=== PATIENT | female | born 1990 | race Caucasian/White ===

== ENCOUNTER → 2017-05-13 | Outpatient (CLI) | payer OTHER | LOC: STAR 15:36 | PROVIDERS: ATTEND Obstetrics & Gynecology Female Pelvic Medicine and Reconstructive Surgery | DX: Z02.9 Encounter for administrative examinations, unspecified (principal) ==

== ENCOUNTER 2017-05-18 05:37 | Day surgery (SDC) | payer OTHER ==
[~2017-05-18] VITALS: Ht 170.2 cm; Wt 85.0 kg
[2017-05-18] MEDS ORDERED: LACTATED RINGERS 1,000 ML IV SCH (06:04)
[2017-05-18 06:24] LABS: HCG UR LOT HCG7030192
[2017-05-18 06:29] VITALS: BP 118/73
[2017-05-18 06:31] LABS: HCG UR OBC PASS
[2017-05-18] MEDS ORDERED: EPINEPHRINE 1 MG/ML, 1ML ONE (07:01)
[2017-05-18] MEDS ORDERED: BUPIVACAINE/PF 0.25% ONE (07:01)
[2017-05-18] MEDS ORDERED: MIDAZOLAM 1 MG/ML, 2ML ONE ×2 (07:07→07:33)
[2017-05-18] MEDS ORDERED: CEFAZOLIN 1,000 MG ONE ×2 (07:27→07:33)
[2017-05-18] MEDS ORDERED: PROPOFOL 50 ML ONE (07:27)
[2017-05-18] MEDS ORDERED: ONDANSETRON 2MG/ML, 2ML ONE ×2 (07:27→07:33)
[2017-05-18] MEDS ORDERED: DEXAMETHASONE 4 MG/ML, 1ML ONE ×2 (07:27→07:33)
[2017-05-18] MEDS ORDERED: GLYCOPYRROLATE 0.2MG/1ML, 5ML ONE (07:27)
[2017-05-18] MEDS ORDERED: SUCCINYLCHOLINE 20 MG/ML, 10ML ONE ×2 (07:27→07:33)
[2017-05-18] MEDS ORDERED: PROPOFOL 10 MG/ML, 20ML ONE ×2 (07:27→07:33)
[2017-05-18] MEDS ORDERED: NEOSTIGMINE 1 MG/ML, 10ML ONE (07:27)
[2017-05-18] MEDS ORDERED: FENTANYL PF 250 MCG/5ML ONE (07:27)
[2017-05-18] MEDS ORDERED: ROCURONIUM 10 MG/ML,10ML ONE ×2 (07:27→07:33)
[2017-05-18] MEDS ORDERED: HYDROcodone/APAP 7.5-325MG/15ML UDC PO PRN (07:30)
[2017-05-18] MEDS ORDERED: ACETAMINOPHEN 325 MG TABLET PO PRN (07:30)
[2017-05-18] MEDS ORDERED: HYDROmorphone 1 MG/ML, 1ML IV PRN (07:30)
[2017-05-18] MEDS ORDERED: OXYcodone 5 MG/5 ML ORAL.SOL UDC PO PRN (07:30)
[2017-05-18] MEDS ORDERED: ONDANSETRON 2MG/ML, 2ML IVPush PRN (07:30)
[2017-05-18] MEDS ORDERED: PROMETHAZINE 25 MG/ML, 1ML IV PRN (07:30)
[2017-05-18] MEDS ORDERED: FENTANYL PF 100 MCG/2ML ONE ×2 (07:33→08:57)
[2017-05-18] MEDS ORDERED: BUPIVACAINE/PF-EPI 0.25% 1:200K INFIL ONE (08:04)
[2017-05-18] MEDS ORDERED: HYDROmorphone 1 MG/ML, 1ML ONE (08:12)
[2017-05-18] MEDS ORDERED: ACETAMINOPHEN 650 MG/20.3 ML UDC ONE (08:57)
[2017-05-18] MEDS ORDERED: OXYcodone 5 MG/5 ML ORAL.SOL UDC ONE (08:58)
[2017-05-18] MEDS: FENTANYL PF 100 MCG/2ML IV PRN ×2 (09:00→09:10)
[2017-05-18] MEDS ORDERED: HYDROmorphone 2 MG/ML, 1ML ONE (09:23)
== END 2017-05-18 11:15 ==
LOC: OUT 05:37 → MERGE 07:30 → OUT 11:15
PROVIDERS: ATTEND Obstetrics & Gynecology Female Pelvic Medicine and Reconstructive Surgery
DX: N94.6 Dysmenorrhea, unspecified (principal); N94.10 Unspecified dyspareunia; N80.1 Endometriosis of ovary; N92.1 Excessive and frequent menstruation with irregular cycle; E28.2 Polycystic ovarian syndrome; Z87.442 Personal history of urinary calculi; Z98.890 Other specified postprocedural states
CPT/HCPCS: 58552; 81025; 88307; J0171; J0330; J0690; J1100; J1170; J2250; J2405; J2704; J2710; J3010; J3490; J7120

== ENCOUNTER 2019-01-03 09:45 | Outpatient (CLI) | payer BC | END 2019-01-03 23:59 | disposition home or self-care (01) | LOC: WOUND 09:45 | PROVIDERS: ATTEND Internal Medicine | DX: T81.89XA Other complications of procedures, not elsewhere classified, initial encounter (principal); L97.312 Non-pressure chronic ulcer of right ankle with fat layer exposed; Z90.710 Acquired absence of both cervix and uterus; Y92.89 Other specified places as the place of occurrence of the external cause; Y83.8 Other surgical procedures as the cause of abnormal reaction of the patient, or of later complication, without mention of misadventure at the time of the procedure | CPT/HCPCS: 11042; 99214 ==

== ENCOUNTER 2019-01-10 10:28 | Outpatient (CLI) | payer BC | END 2019-01-10 23:59 | disposition home or self-care (01) | LOC: WOUND 10:28 | PROVIDERS: ATTEND Internal Medicine | DX: T81.89XD Other complications of procedures, not elsewhere classified, subsequent encounter (principal); L97.311 Non-pressure chronic ulcer of right ankle limited to breakdown of skin; Z90.710 Acquired absence of both cervix and uterus; Y83.8 Other surgical procedures as the cause of abnormal reaction of the patient, or of later complication, without mention of misadventure at the time of the procedure | CPT/HCPCS: 97597 ==